=== PATIENT | female | born 1950 | race Caucasian/White ===

== ENCOUNTER 2017-02-16 11:39 | Outpatient (CLI) | payer BC ==
[2017-02-16 12:47] LABS: #Basophils 0.1 thou/uL (0.0-0.2); #Lymphocytes 1.5 thou/uL (1.20-3.40); #Monocytes 0.4 thou/uL (0.11-0.59); #Neutrophils 2.8 thou/uL (1.40-6.50); %Basophils 1.5 % (0.0-1.0); %Lymphocytes 31.1 % (21.0-51.0); %Monocytes 8.6 % (0.0-10.0); Hematocrit 40.6 % (36.0-47.0); Mean Platelet Volume 7.6 fL (7.4-10.4); White Blood Cell (WBC) Count 4.9 thou/uL (4.8-10.8)
[2017-02-16 13:07] LABS: Anion Gap 13 mmol/L (10-20); BUN (Urea Nitrogen) 13 mg/dL (9.8-20.1); Calc. Creatinine Clearance 0 mL/min (70-130); Calcium 9.8 mg/dL (7.8-10.44); Carbon Dioxide 27 mmol/L (23-31); Chloride 105 mmol/L (98-107); Estimated GFR-MDRD 75
== END 2017-02-16 11:40 | disposition home or self-care (01) ==
LOC: LABBT 11:39
PROVIDERS: ATTEND Orthopaedic Surgery
DX: Z01.812 Encounter for preprocedural laboratory examination (principal); M23.42 Loose body in knee, left knee
CPT/HCPCS: 80048; 85025

== ENCOUNTER 2017-02-19 07:42 | Day surgery (SDC) | payer BC ==
[2017-02-16 11:52] VITALS: BMI 24.9
[2017-02-19] MEDS ORDERED: CEFAZOLIN/Water 2 GM/20 ML SYRINGE ONE ×2 (08:37→12:02)
[2017-02-19] MEDS ORDERED: Diprivan 20 ML ONE (08:43)
[2017-02-19] MEDS ORDERED: Lidocaine 2% MPF 10 ML AMP (For Epidural Use) ONE (10:21)
[2017-02-19] MEDS ORDERED: Ketorolac Tromethamine 30 MG/ML VIAL ONE (10:21)
[2017-02-19] MEDS ORDERED: Ondansetron HCl/PF 4 MG/2 ML Vial ONE (10:21)
[2017-02-19] MEDS ORDERED: Propofol 200 MG/20 ML VIAL ONE ×2 (10:21)
--- NOTE | 2017-02-19 10:58 | OP ---
DATE OF PROCEDURE: 02/19/2017 SURGEON: Dr. Geoffrey Dunlap PREOPERATIVE DIAGNOSIS: Loose body, left knee. POSTOPERTIVE DIAGNOSIS: Loose body and lateral meniscus tear, left knee. 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 Two areas about 1 cm each, probably one of these serve as the donor lesion for the large loose body. No arth ritis in the lateral compartment, intact ACL, mild patellofemoral arthritis. PROCEDURE IN DETAIL: The scope was placed in the lateral portal and probe was placed in medial port al. Findings were as above. I found a large loose body between the medial femoral condyle and the medial meniscus. This was removed and discarded. There was no need for pathological diagnosis sinc e there is obviously hyaline cartilage and bone. The medial meniscus was probed and found to be sta ble. I debrided the defect on the femur and smoothed the margins of the defect. The lateral compar tment was examined, was found to be a complex tear of the lateral meniscus. This was debrided using basket forceps and shaver and probed and found to be stable. Other findings were as above. No jose ris within the patellofemoral joint. The knee was irrigated. Sterile dressings applied. There wer e no complications.
--- NOTE | 2017-02-20 16:04 | EKG ---
Test Reason : PREOP Blood Pressure : / mmHG Vent. Rate : 073 BPM Atrial Rate : 073 BPM P-R Int : 164 ms QRS Dur : 084 ms QT Int : 410 ms P-R-T Axes : 072 017 051 degrees QTc Int : 451 ms Normal sinus rhythm with sinus arrhythmia Normal ECG No previous ECGs available Confirmed by DR. Maci AVELAR ([id number]) on 02/20/2017 4:04:25 PM Referred By: VISHNU Confirmed By:DR. Maci AVELAR
== END 2017-02-20 12:05 | disposition home or self-care (01) ==
LOC: SDC 07:42
PROVIDERS: ATTEND Orthopaedic Surgery
PROC: 0SCD4ZZ Extirpation of Matter from Left Knee Joint, Percutaneous Endoscopic Approach (ICD-10-PCS; principal; 2017-02-19)
PROC: 0SBD4ZZ Excision of Left Knee Joint, Percutaneous Endoscopic Approach (ICD-10-PCS; principal; 2017-02-19)
DX: M23.42 Loose body in knee, left knee (principal); M17.12 Unilateral primary osteoarthritis, left knee; S83.272A Complex tear of lateral meniscus, current injury, left knee, initial encounter; E89.0 Postprocedural hypothyroidism; H81.10 Benign paroxysmal vertigo, unspecified ear; K29.80 Duodenitis without bleeding; D47.3 Essential (hemorrhagic) thrombocythemia; C94.6 Myelodysplastic disease, not elsewhere classified; Z79.82 Long term (current) use of aspirin; Z79.899 Other long term (current) drug therapy; Z98.51 Tubal ligation status; Z98.41 Cataract extraction status, right eye; Z98.890 Other specified postprocedural states; Z85.850 Personal history of malignant neoplasm of thyroid; Z92.3 Personal history of irradiation
CPT/HCPCS: 93005; 93010; G8978-GP-CL; G8979-GP-CL; G8980-GP-CL; J1885; J2001; J2405; J2704

== ENCOUNTER 2018-05-06 08:10 | Outpatient (CLI) | payer BC ==
--- NOTE | 2018-05-06 10:17 | MMO ---
BILATERAL MAMMOGRAMS: HISTORY: Screening mammography. COMPARISON: Multiple exams back to 01/15/2013. FINDINGS: Scattered fibroglandular densities. No dominant mass or suspicious calcifications. The study was ev aluated with the assistance of computer-aided detection. IMPRESSION: BI-RADS category 1. Negative. Suggest routine followup. BIRADS 1: Negative Routine annual screening mammography (for women over age 40) POS: [facility]
== END 2018-05-06 08:11 | disposition home or self-care (01) ==
LOC: SCSMAMMO 08:10
PROVIDERS: ATTEND Family Medicine
DX: Z12.31 Encounter for screening mammogram for malignant neoplasm of breast (principal)
CPT/HCPCS: 77067